=== PATIENT | female | born 1950 | race American Indian/Alaskan Native ===

== ENCOUNTER 2017-03-04 11:10 | Outpatient (CLI) | payer MEDICARE ==
--- NOTE | 2017-03-04 14:31 | Ultrasound Report ---
ULTRASOUND RENAL INDICATION: CKD. COMPARISON: None similar. FINDINGS: Renal sonography suggests mild to moderately increased renal cortical echogenicity. Grossly preserved contours. No hydronephrosis. Hepatic surface lobulation/cirrhosis also questioned. RIGHT KIDNEY measures 10.6 x 4.3 x 4.3 cm with cortical thickness of 1.7 cm. LEFT KIDNEY visualization technically limited due to bowel gas, though may be grossly atrophic at 6.5 x 3.4 x 3.8 cm with cortical thickness of 0.6 cm. URINARY BLADDER suboptimally distended and assessed. CONCLUSION: Underlying medical renal disease and few other findings, as above. Please correlate. Thank you for the opportunity to participate in this patient's care.
== END 2017-03-04 11:11 | disposition home or self-care (01) ==
LOC: US 11:10
PROVIDERS: ATTEND Internal Medicine Nephrology
DX: I12.9 Hypertensive chronic kidney disease with stage 1 through stage 4 chronic kidney disease, or unspecified chronic kidney disease (principal); N18.4 Chronic kidney disease, stage 4 (severe); E11.22 Type 2 diabetes mellitus with diabetic chronic kidney disease; D63.1 Anemia in chronic kidney disease; N25.81 Secondary hyperparathyroidism of renal origin; N32.89 Other specified disorders of bladder
CPT/HCPCS: 76770

== ENCOUNTER 2017-10-03 08:29 | Day surgery (SDC) | payer MEDICARE ==
[~2017-10-03 08:29] MED LIST: ANCEF/STERILE WATER 2 GM/20 ML 2 GM/20 ML SYRINGE IV NR; NACL 0.9% 1000 ML 1,000 ML IV SCH
[2017-10-03 09:16] LABS: Basophils % (Auto) 0.6 % (0.0-1.8); Eosinophils # (Auto) 0.4 K/mm3 (0.0-0.4); Eosinophils % (Auto) 7.2 % (0.0-4.3); Hematocrit 32.6 % (30.3-42.9); Hemoglobin 11.2 gm/dl (10.1-14.3); Lymphocytes # (Auto) 2.2 K/mm3 (1.2-5.4); Lymphocytes % (Auto) 34.9 % (13.4-35.0); Mean Corpuscular HGB Conc 34 % (30-34); Mean Corpuscular Hemoglobin 32 pg (28-32); Mean Corpuscular Volume 94 fl (79-97); Monocytes # (Auto) 0.3 K/mm3 (0.0-0.8); Monocytes % (Auto) 5.1 % (0.0-7.3); Platelet Count 89 K/mm3 (140-440); Red Blood Count 3.48 M/mm3 (3.65-5.03); Red Cell Distribution Width 12.4 % (13.2-15.2)
[2017-10-03] MEDS ORDERED: ZOFRAN IV PRN (09:28)
[2017-10-03] MEDS ORDERED: DILAUDID IV PRN (09:28)
--- NOTE | 2017-10-03 09:29 | Anesthesia Day of Surgery ---
Anesthesia Day of Surgery - Day of Surgery Patient Examined: Yes Patient H&P Reviewed: Yes Patient is NPO: Yes
--- NOTE | 2017-10-03 09:30 | Anesthesia Consultation ---
Anesthesia Consult and Med Hx Date of service: 10/03/17 - Airway Anesthetic Teeth Evaluation: Good ROM Head & Neck: Adequate Mental/Hyoid Distance: Adequate Mallampati Class: Class I Intubation Access Assessment: Good - Pulmonary Exam CTA: Yes - Cardiac Exam Cardiac Exam: RRR - Pre-Operative Health Status ASA Pre-Surgery Classification: ASA4 Proposed Anesthetic Plan: General (No versed, GA with LMA ok, Denies problems with GERD) - Cardiovascular System Hx Hypertension: Yes (2013) Hx Heart Attack/AMI: No (2014) - Central Nervous System CVA: Yes (2014) Hx Psychiatric Problems: Yes - Endocrine Hx End Stage Renal Disease: Yes - Hematic Hx Anemia: No - Other Systems Hx Alcohol Use: Yes Hx Cancer: No
[2017-10-03 09:35] LABS: Albumin 3.3 g/dL (3.9-5); Calcium 8.7 mg/dL (8.4-10.2)
[2017-10-03] MEDS ORDERED: PEPCID IV NR (10:00)
[2017-10-03] MEDS ORDERED: NACL 0.9% 1000 ML 1,000 ML IV SCH (10:00)
[2017-10-03] MEDS ORDERED: SUBLIMAZE ONE ×2 (11:05→14:09)
[2017-10-03] MEDS ORDERED: DIPRIVAN 10 MG/ML IV ONE (11:05)
[2017-10-03] MEDS ORDERED: HEPARIN 10,000 UNITS/10 ML ONE (11:50)
[2017-10-03] MEDS ORDERED: MARCAINE-EPI 0.5%-1:200,000 INFILTRATI ONE (11:50)
[2017-10-03] MEDS ORDERED: NACL 0.9% 500 ML 500 ML ONE (11:50)
[2017-10-03] MEDS ORDERED: LIDOCAINE 1.5%/EPI 1:200,000 INFILTRATI ONE (11:50)
[2017-10-03] MEDS ORDERED: MARCAINE 0.5% 30 ML INFILTRATI ONE (11:52)
[2017-10-03] MEDS ORDERED: HEPARIN 10,000 UNITS/10 ML IV ONE ×2 (11:56)
[2017-10-03] MEDS ORDERED: NACL 0.9% IR ONE (11:56)
[2017-10-03] MEDS ORDERED: NACL 0.9% 500 ML IV ONE (11:56)
[2017-10-03] MEDS ORDERED: MARCAINE 0.5% INFILTRATI ONE (11:56)
[2017-10-03] MEDS ORDERED: HEPARIN IV ONE (11:56)
[2017-10-03] MEDS ORDERED: XYLOCAINE MPF 2% ONE (12:02)
[2017-10-03] MEDS ORDERED: ROBINUL ONE (12:40)
[2017-10-03] MEDS ORDERED: NACL ONE (12:56)
[2017-10-03] MEDS ORDERED: RIFADIN ONE (12:57)
[2017-10-03] MEDS ORDERED: ZOFRAN ONE (14:30)
--- NOTE | 2017-10-03 14:43 | Short Stay Summary ---
Short Stay Documentation Date of service: 10/03/17 Narrative H&P: See H&P - History H&P: obtained from office - Allergies and Medications Current Medications: Allergies atenolol Allergy (Severe, Verified 09/30/17 12:20) Rash, Itching Home Medications Medication Instructions Recorded Confirmed Last Taken Type Atorvastatin Calcium 20 mg PO HS 05/10/16 10/03/17 10/02/17 19:00 History Citalopram [celeXA] 10 mg PO QDAY 05/10/16 10/03/17 10/02/17 09:00 History Cranberry Fruit Concentrate 450 mg PO QDAY 05/10/16 10/03/17 10/02/17 09:00 History [Cranberry] Hydralazine HCl [Apresoline TAB] 150 mg PO TID 05/10/16 10/03/17 10/03/17 06:00 History Insulin Lispro [HumaLOG VIAL] 3 - 10 units SC QDAY 05/10/16 10/03/17 10/02/17 09 :00 History LORazepam [Ativan] 0.35 mg PO PRN PRN 05/10/16 10/03/17 Unknown History Labetalol HCl 300 mg PO BID 05/10/16 10/03/17 10/03/17 06:00 History Linagliptin [Tradjenta] 5 mg PO QDAY 05/10/16 10/03/17 10/02/17 09:00 History Loperamide [Imodium] 4 mg PO ONCE 05/10/16 10/03/17 Unknown History Multivitamin Tab 1 tab PO QDAY 05/10/16 10/03/17 10/02/17 09:00 History NIFEdipine [Nifedipine ER] 60 mg PO QDAY 05/10/16 10/03/17 10/03/17 06:00 History Omeprazole 40 mg PO QAM 05/10/16 10/03/17 10/02/17 09:00 History Ondansetron [Zofran TAB] 4 mg PO Q6H PRN 05/10/16 10/03/17 Unknown History Pregabalin [Lyrica] 25 mg PO Q12H 05/10/16 10/03/17 10/02/17 19:00 History Sennosides [Senna] 8.6 mg PO HS 05/10/16 10/03/1718 19:00 History Vitamin D3 4,000 units PO QDAY 05/10/16 10/03/17 10/02/17 09:00 History Zolpidem [Ambien] 10 mg PO QHS 05/10/16 10/03/17 10/02/17 19:00 History diphenhydrAMINE [Benadryl CAP] 25 mg PO Q8HR PRN 05/10/16 10/03/17 Unknown History traMADol [Ultram] 50 mg PO Q6HR PRN 05/10/16 10/03/17 Unknown History Active Medications Famotidine (Pepcid) 20 mg IV PREOP NR Stop: 10/03/17 16:00 Hydromorphone HCl (Dilaudid) 0.25 mg IV Q10MIN PRN PRN Reason: Pain, Moderate (4-6) Stop: 10/03/17 16:00 Cefazolin Sodium (Ancef/Sterile Water 2 Gm/20 Ml) 2 gm in 20 mls @ 80 mls/hr IV PREOP NR; Protocol Stop: 10/03/17 23:59 Sodium Chloride (Nacl 0.9% 1000 Ml) 1,000 mls @ 42 mls/hr IV DIRECT JOSE F Last Admin: 10/03/17 09:30 Dose: 42 mls/hr Sodium Chloride (Nacl 0.9% 1000 Ml) 1,000 mls @ 42 mls/hr IV DIRECT JOSE F Ondansetron HCl (Zofran) 4 mg IV ONCE PRN PRN Reason: Nausea And Vomiting Stop: 10/03/17 16:00 - Brief post op/procedure progress note Date of procedure: 10/03/17 Pre-op diagnosis: End Stage Renal Disease Post-op diagnosis: same Procedure: Creation of Left Brachial Artery to Axillary Vein Graft with 6 mm Procal Bovine Mesenteric Vein Graft Anesthesia: GETA Surgeon: LORA MENDOZA Estimated blood loss: 50-100ml Pathology: none Condition: stable - Disposition Condition at discharge: Good Disposition: DC/[place] Short Stay Discharge Plan Activity: other (No heavy lifting with left arm) Wound: open to air, keep clean and dry, other (Okay to wash the wound with soap and water but do not soak in water) Follow up with: LORA MENDOZA MD [Staff Physician] - 14 Days Prescriptions: HYDROcodone/APAP 7.5-325 [Sabine 7.5/325] 1 each PO Q6HR PRN #40 tablet PRN Reason: Pain
[2017-10-03] MEDS ORDERED: HumuLIN R SUB-Q ONE (15:21)
[2017-10-03] MEDS ORDERED: PLAVIX PO SCH (16:00)
--- NOTE | 2017-10-03 16:02 | Operative Report ---
Operative Report Operative Report: Date of procedure:10/03/2017 Pre-operative diagnosis: End Stage Renal Disease Post-operative diagnosis: End Stage Renal Disease Procedure(s): 1. Creation of Left Brachial Artery to Axillary Vein AV Graft with 6 mm ProCal Bovine Graft Surgeon: Jose Enrique Lao MD Couples Therapist: None Anesthesia: General Endotracheal Anesthesia EBL: Minimal Counts: Correct Complications: None Condition: Stable Findings: Successful Creation of Left Arm AV Graft Specimen: None Indication: The patient is a 67 year old female with a history of renal failure in need of parts counterman access. She was given the risk, benefits and alternative procedures, of an arteriovenous graft, and consented to the procedure. Description of Procedure: The patient was brought to the operating room and laid in supine position after general endotracheal anesthesia was achieved the left arm was prepped and draped in normal sterile fashion. A longitudinal incision was made on the medial aspect of the arm just proximal to the antecubital crease and carried down to the brachial artery using sharp dissection. The brachial artery was dissected out circumferentially both proximally and distally and controlled with vessel loops. A second incision was created in longitudinal fashion on the medial aspect of the arm just distal to the axillary crease and carried down to the axillary vein using sharp dissection. Axillary vein was dissected out circumferentially and controlled with a vessel loop. I then used a Jessica- Wick tunneler to tunnel from the brachial artery incision to the axillary vein incision and then put an 6 mm bovine through the tunnel. I infused with heparinized saline to ensure that it was not twisted or kinked. I put the brachial artery vessel loops on tension controlling the flow and then created an arteriotomy using an 11 blade and Tucker scissors. I beveled the graft and created an end-to-side anastomosis using 6-0 Prolene running fashion. I clamped the graft just proximal to the anastomosis and then released the vessel loops restoring flow in the brachial artery. I placed quick clot in incision to achieve hemostasis. I waited 5 minutes and allowed the graft to expand. I then cut the proximal end of the graft to the appropriate length and beveled the graft in preparation for a venous anastomosis. I controlled the axillary vein a Satinsky clamp and created a venotomy using an 11 blade and Tucker scissors. I created an end to side anastomosis using a 6-0 Prolene in running fashion. Prior to completing the anastomosis I flushed the graft to ensure there was no thrombus and then completed the anastamosis. I released all clamps allowing flow into the AV graft which had an excellent thrill. I packed the wound with quick clot to achieve hemostasis. I anesthetized both wounds with Marcaine and then closed both wounds in 2 layers using 3-0 Vicryl in running fashion in the deep dermal layer and 4-0 Monocryl in running fashion the subcuticular layer. I dressed both wounds with Surgicel. The patient tolerated the procedure well all sponge needle and instrument counts were correct the patient was taken to recovery in stable condition.
[2017-10-03 16:14] VITALS: BP 138/68
--- NOTE | 2017-10-03 16:30 | Post Anesthesia Evaluation ---
- Post Anesthesia Evaluation Patient Participated: Yes Airway Patent: Yes Stable Respiratory Function: Yes Nausea/Vomiting: No Temp > 96.8F: Yes Pain Manageable: Yes Adequeate Hydration: Yes Anesthesia Complications: No Block Receding Appropriately: Not Applicable
== END 2017-10-03 17:11 ==
LOC: OR 08:29
PROVIDERS: ATTEND Surgery Vascular Surgery
DX: I12.0 Hypertensive chronic kidney disease with stage 5 chronic kidney disease or end stage renal disease (principal); E11.22 Type 2 diabetes mellitus with diabetic chronic kidney disease; N18.6 End stage renal disease; K21.9 Gastro-esophageal reflux disease without esophagitis; F32.9 Major depressive disorder, single episode, unspecified; F17.200 Nicotine dependence, unspecified, uncomplicated; F41.9 Anxiety disorder, unspecified; T82.4 Mechanical complication of vascular dialysis catheter; Z98.890 Other specified postprocedural states; Z88.8 Allergy status to other drugs, medicaments and biological substances; Z79.899 Other long term (current) drug therapy; Z86.73 Personal history of transient ischemic attack (TIA), and cerebral infarction without residual deficits; Z99.2 Dependence on renal dialysis; Z72.89 Other problems related to lifestyle; Z79.4 Long term (current) use of insulin; Z80.8 Family history of malignant neoplasm of other organs or systems; Y83.2 Surgical operation with anastomosis, bypass or graft as the cause of abnormal reaction of the patient, or of later complication, without mention of misadventure at the time of the procedure; Y82.9 Unspecified medical devices associated with adverse incidents
CPT/HCPCS: 36415; 36830; 80053; 82962; 85025; C1757; C1768; J0690; J1644; J2405; J2704; J3010; J7030; J7040; J1815; J3490